=== PATIENT | female | born 1935 | race Caucasian/White ===

== ENCOUNTER 2021-03-02 12:40 | Inpatient (IN) ==
[2021-03-02] MEDS ORDERED: Dexamethasone Sodium Phos/PF 10 MG/ML VIAL IVP ONE (14:14)
[2021-03-02] MEDS ORDERED: cefTRIAXone 2,000 MG in 0.9 % Sodium Chloride Mini Bag 100 ML IVPB ONE (14:14)
[2021-03-02] MEDS ORDERED: Azithromycin 500 MG in 0.9 % Sodium Chloride 250 ML IVPB ONE (14:15)
[2021-03-02] MEDS ORDERED: 0.9 % Sodium Chloride 500 ML IVC ONE (14:24)
[2021-03-02] MEDS ORDERED: 0.9 % Sodium Chloride 1,000 ML IVC SCH ×2 (14:30→17:43)
[2021-03-02 15:02] LABS: Basophils % 0.7 %; Eosinophils # 0.1 K/mcL (0.0-0.6); Eosinophils % 1.8 %; Hematocrit 46.5 % (35.3-44.9); Hemoglobin 15.2 g/dL (11.5-15.4); Immature Granulocytes % 1.3 % (0-4); Lymphocytes # 0.7 K/mcL (0.6-4.6); Lymphocytes % 13.3 %; Mean Corpuscular HGB Conc 32.7 g/dL (31.6-35.5); Mean Corpuscular Hemoglobin 29.5 pg (28.0-33.3); Mean Corpuscular Volume 90.1 fL (83.0-100.0); Mean Platelet Volume 11.3 fL (9.4-12.4); Monocytes # 0.4 K/mcL (0.0-1.3); Monocytes % 7.2 %; Neutrophils # 4.1 K/mcL (1.6-8.9); Platelet Count 213 K/mcL (140-400); Red Blood Count 5.16 M/mcL (3.82-4.97); Red Cell Distribution Width 14.1 % (11.5-14.5); Segmented Neutrophils % 75.7 %; White Blood Count 5.4 K/mcL (4.3-11.1)
[2021-03-02 15:18] LABS: Activated Partial Thrombo Time 90.9 Seconds (26.0-36.0)
[2021-03-02 15:20] LABS: Bilirubin,Urine Moderate (Negative); Blood,Urine Moderate (Negative); Clarity,Urine Cloudy (Clear); Glucose,Urine (UA) Normal (Normal); Ketones,Urine 40 mg/dL (Negative); Leukocyte Esterase,Urine Trace (Negative); Nitrite,Urine Negative (Negative); Protein,Urine 30 mg/dL (Neg-Trace)
[2021-03-02 15:25] LABS: Alanine Aminotransferase 22 Units/L (7-52); Albumin 3.2 g/dL (3.5-5.7); Alkaline Phosphatase 132 Units/L (34-104); Aspartate Amino Transferase 36 Units/L (13-39); BUN/Creatinine Ratio 22 (6-26); Bilirubin,Direct 0.3 mg/dL (0.0-0.2); Bilirubin,Indirect 0.7 mg/dL (0.0-1.0); Blood Urea Nitrogen 16 mg/dL (8-23); Calcium 9.2 mg/dL (8.6-10.3); Carbon Dioxide 29 mEq/L (23-29); Chloride 99 mEq/L (98-107); Globulin 3.3 g/dL (2.4-3.5); Glucose 105 mg/dL (70-105); Osmolality,Calculated 286 (280-300); Potassium 3.2 mEq/L (3.5-5.1); Sodium 137 mEq/L (136-145); Total Protein 6.5 g/dL (6.4-8.9); eGFR For African Americans > 60 (> 60); eGFR For Non-African Americans > 60 (> 60)
[2021-03-02 15:28] LABS: INR 13.3; Prothrombin Time 145.6 Seconds (9.4-12.1)
[2021-03-02 15:29] LABS: Color,Urine Dark Yellow (Yellow)
[2021-03-02 15:32] LABS: Platelet Estimate Normal (Normal); Reactive Lymphocytes Present (Not Present)
[2021-03-02 15:50] LABS: Bacteria,Urine Moderate per hpf (None-Few); Mucus,Urine Few per lpf (None-Few); Squamous Epithelial Cell,Urine Few per hpf (None-Few)
[2021-03-02] MEDS ORDERED: Acetaminophen 325 MG TABLET PO PRN (16:55)
[2021-03-02] MEDS ORDERED: Ondansetron 4 MG/2 ML VIAL IVP PRN (16:55)
[2021-03-02] MEDS ORDERED: MOM Conc 10 ML UD.LIQ PO PRN (16:55)
[2021-03-02] MEDS ORDERED: Mag Hydrox/Al Hydrox/Simeth 30 ML UDC PO PRN (16:55)
[2021-03-02] MEDS ORDERED: Naloxone 0.4 MG/ML INJ IVP PRN (16:55)
[2021-03-02] MEDS ORDERED: Isovue-370 500 ML BOTTLE IVP ONE (17:06)
[2021-03-02 18:45] LABS: Hematocrit 43.3 % (35.3-44.9); Hemoglobin 14.3 g/dL (11.5-15.4)
[2021-03-02 18:57] LABS: INR 13.5; Prothrombin Time 147.4 Seconds (9.4-12.1)
[2021-03-02 23:39] LABS: Hematocrit 43.1 % (35.3-44.9); Hemoglobin 14.4 g/dL (11.5-15.4)
[2021-03-02 23:46] LABS: Prothrombin Time 21.8 Seconds (9.4-12.1)
[2021-03-03 06:14] LABS: Hematocrit 43.2 % (35.3-44.9); Hemoglobin 14.3 g/dL (11.5-15.4)
[2021-03-03 06:39] LABS: INR 1.3; Prothrombin Time 14.2 Seconds (9.4-12.1)
[2021-03-03] MEDS: amLODIPine 5 MG TABLET PO SCH (08:49)
[2021-03-03] MEDS: BuPROPion XL (24 HR) 150 MG TABLET PO SCH (08:49)
[2021-03-03] MEDS: cefTRIAXone 1,000 MG in 0.9 % Sodium Chloride Mini Bag 100 ML IVPB SCH (08:55)
[2021-03-03 09:13] LABS: Basophils % 0.9 %; Hemoglobin 14.4 g/dL (11.5-15.4); Immature Granulocytes % 7.8 % (0-4); Lymphocytes # 0.7 K/mcL (0.6-4.6); Lymphocytes % 16.5 %; Mean Corpuscular HGB Conc 32.7 g/dL (31.6-35.5); Mean Corpuscular Hemoglobin 29.6 pg (28.0-33.3); Mean Corpuscular Volume 90.3 fL (83.0-100.0); Mean Platelet Volume 11.6 fL (9.4-12.4); Monocytes # 0.2 K/mcL (0.0-1.3); Monocytes % 4.9 %; Neutrophils # 3.1 K/mcL (1.6-8.9); Platelet Count 216 K/mcL (140-400); Red Blood Count 4.87 M/mcL (3.82-4.97); Segmented Neutrophils % 69.9 %; White Blood Count 4.5 K/mcL (4.3-11.1)
[2021-03-03 09:22] LABS: BUN/Creatinine Ratio 32 (6-26); Blood Urea Nitrogen 17 mg/dL (8-23); Calcium 8.8 mg/dL (8.6-10.3); Carbon Dioxide 26 mEq/L (23-29); Chloride 107 mEq/L (98-107); Glucose 139 mg/dL (70-105); Osmolality,Calculated 296 (280-300); Potassium 3.6 mEq/L (3.5-5.1); Sodium 141 mEq/L (136-145); eGFR For African Americans > 60 (> 60); eGFR For Non-African Americans > 60 (> 60)
[2021-03-03 09:24] LABS: Platelet Estimate Normal (Normal)
[2021-03-03] MEDS ORDERED: Warfarin perPT PO PRN (18:00)
[2021-03-03] MEDS ORDERED: *HR* Warfarin 2 MG TABLET PO ONE (18:00)
[2021-03-04] MEDS: amLODIPine 5 MG TABLET PO SCH (07:56)
[2021-03-04] MEDS: BuPROPion XL (24 HR) 150 MG TABLET PO SCH (07:56)
[2021-03-04] MEDS: cefTRIAXone 1,000 MG in 0.9 % Sodium Chloride Mini Bag 100 ML IVPB SCH (07:57)
[2021-03-04 07:59] LABS: Basophils % 0.3 %; Eosinophils % 0.1 %; Hematocrit 45.5 % (35.3-44.9); Hemoglobin 15.2 g/dL (11.5-15.4); Immature Granulocytes % 1.4 % (0-4); Lymphocytes # 0.6 K/mcL (0.6-4.6); Lymphocytes % 6.5 %; Mean Corpuscular HGB Conc 33.4 g/dL (31.6-35.5); Mean Corpuscular Hemoglobin 29.7 pg (28.0-33.3); Mean Corpuscular Volume 88.9 fL (83.0-100.0); Mean Platelet Volume 10.6 fL (9.4-12.4); Monocytes # 0.7 K/mcL (0.0-1.3); Monocytes % 7.1 %; Neutrophils # 7.7 K/mcL (1.6-8.9); Platelet Count 290 K/mcL (140-400); Red Blood Count 5.12 M/mcL (3.82-4.97); Segmented Neutrophils % 84.6 %; White Blood Count 9.1 K/mcL (4.3-11.1)
[2021-03-04 08:04] LABS: INR 1.2; Prothrombin Time 12.9 Seconds (9.4-12.1)
[2021-03-04 08:19] LABS: BUN/Creatinine Ratio 40 (6-26); Blood Urea Nitrogen 24 mg/dL (8-23); Calcium 9.2 mg/dL (8.6-10.3); Carbon Dioxide 25 mEq/L (23-29); Chloride 108 mEq/L (98-107); Glucose 122 mg/dL (70-105); Osmolality,Calculated 305 (280-300); Potassium 3.4 mEq/L (3.5-5.1); Sodium 145 mEq/L (136-145); eGFR For African Americans > 60 (> 60); eGFR For Non-African Americans > 60 (> 60)
[2021-03-04] MEDS ORDERED: 0.9 % Sodium Chloride 1,000 ML IV SCH (17:45)
[2021-03-04] MEDS ORDERED: *HR* Warfarin 2 MG TABLET PO ONE (18:00)
[2021-03-04] MEDS ORDERED: Potassium Chloride Elixir 20 MEQ/15 ML UDC PO ONE (18:00)
[2021-03-05] MEDS: cefTRIAXone 1,000 MG in 0.9 % Sodium Chloride Mini Bag 100 ML IVPB SCH (07:27)
[2021-03-05] MEDS: amLODIPine 5 MG TABLET PO SCH ×2 (07:28→11:02)
[2021-03-05] MEDS: BuPROPion XL (24 HR) 150 MG TABLET PO SCH ×2 (07:29→11:11)
[2021-03-05] MEDS ORDERED: *HR* Metoprolol 5 MG/5 ML VIAL IVP ONE (07:33)
[2021-03-05 08:03] LABS: Basophils # 0.1 K/mcL (0.0-0.2); Basophils % 0.7 %; Eosinophils % 0.3 %; Hematocrit 45.1 % (35.3-44.9); Hemoglobin 14.9 g/dL (11.5-15.4); Lymphocytes # 0.7 K/mcL (0.6-4.6); Lymphocytes % 9.9 %; Mean Corpuscular Hemoglobin 29.8 pg (28.0-33.3); Mean Corpuscular Volume 90.2 fL (83.0-100.0); Mean Platelet Volume 10.6 fL (9.4-12.4); Monocytes # 0.6 K/mcL (0.0-1.3); Monocytes % 8.2 %; Neutrophils # 5.5 K/mcL (1.6-8.9); Platelet Count 283 K/mcL (140-400); Red Cell Distribution Width 14.6 % (11.5-14.5); Segmented Neutrophils % 78.9 %
[2021-03-05 08:09] LABS: INR 1.5; Prothrombin Time 16.2 Seconds (9.4-12.1)
[2021-03-05 08:28] LABS: BUN/Creatinine Ratio 48 (6-26); Blood Urea Nitrogen 24 mg/dL (8-23); Calcium 8.8 mg/dL (8.6-10.3); Carbon Dioxide 27 mEq/L (23-29); Chloride 113 mEq/L (98-107); Glucose 121 mg/dL (70-105); Osmolality,Calculated 313 (280-300); Potassium 3.4 mEq/L (3.5-5.1); Sodium 149 mEq/L (136-145); eGFR For African Americans > 60 (> 60); eGFR For Non-African Americans > 60 (> 60)
[2021-03-05] MEDS ORDERED: Potassium Chloride Elixir 20 MEQ/15 ML UDC PO ONE (16:41)
[2021-03-05] MEDS: Ringers Solution, Lactated 1,000 ML IVC SCH (17:16)
[2021-03-05] MEDS ORDERED: *HR* Warfarin 2 MG TABLET PO ONE (18:00)
[2021-03-06] MEDS: Ringers Solution, Lactated 1,000 ML IVC SCH (06:16)
[2021-03-06] MEDS: BuPROPion XL (24 HR) 150 MG TABLET PO SCH (08:58)
[2021-03-06] MEDS: amLODIPine 5 MG TABLET PO SCH (08:59)
[2021-03-06] MEDS: cefTRIAXone 1,000 MG in 0.9 % Sodium Chloride Mini Bag 100 ML IVPB SCH (08:59)
[2021-03-06 09:11] LABS: Basophils % 0.3 %; Eosinophils # 0.1 K/mcL (0.0-0.6); Eosinophils % 0.9 %; Hematocrit 41.1 % (35.3-44.9); Hemoglobin 13.4 g/dL (11.5-15.4); Immature Granulocytes % 2.2 % (0-4); Lymphocytes # 0.7 K/mcL (0.6-4.6); Lymphocytes % 9.3 %; Mean Corpuscular HGB Conc 32.6 g/dL (31.6-35.5); Mean Corpuscular Hemoglobin 29.3 pg (28.0-33.3); Mean Corpuscular Volume 89.9 fL (83.0-100.0); Mean Platelet Volume 10.8 fL (9.4-12.4); Monocytes # 0.5 K/mcL (0.0-1.3); Monocytes % 5.8 %; Neutrophils # 6.4 K/mcL (1.6-8.9); Platelet Count 237 K/mcL (140-400); Red Blood Count 4.57 M/mcL (3.82-4.97); Red Cell Distribution Width 14.2 % (11.5-14.5); Segmented Neutrophils % 81.5 %; White Blood Count 7.9 K/mcL (4.3-11.1)
[2021-03-06 09:17] LABS: INR 2.4
[2021-03-06 09:26] LABS: BUN/Creatinine Ratio 39 (6-26); Blood Urea Nitrogen 17 mg/dL (8-23); Calcium 8.2 mg/dL (8.6-10.3); Carbon Dioxide 29 mEq/L (23-29); Chloride 109 mEq/L (98-107); Glucose 99 mg/dL (70-105); Osmolality,Calculated 300 (280-300); Potassium 3.1 mEq/L (3.5-5.1); Sodium 144 mEq/L (136-145); eGFR For African Americans > 60 (> 60); eGFR For Non-African Americans > 60 (> 60)
[2021-03-07] MEDS: Ringers Solution, Lactated 1,000 ML IVC SCH ×3 (02:13→14:40)
[2021-03-07 08:25] LABS: Basophils % 0.4 %; Eosinophils # 0.1 K/mcL (0.0-0.6); Eosinophils % 1.5 %; Hematocrit 39.1 % (35.3-44.9); Hemoglobin 12.9 g/dL (11.5-15.4); Immature Granulocytes % 4.1 % (0-4); Lymphocytes # 0.9 K/mcL (0.6-4.6); Lymphocytes % 12.2 %; Mean Corpuscular Hemoglobin 29.3 pg (28.0-33.3); Mean Corpuscular Volume 88.9 fL (83.0-100.0); Mean Platelet Volume 10.7 fL (9.4-12.4); Monocytes # 0.5 K/mcL (0.0-1.3); Monocytes % 6.6 %; Neutrophils # 5.5 K/mcL (1.6-8.9); Platelet Count 241 K/mcL (140-400); Red Cell Distribution Width 14.3 % (11.5-14.5); Segmented Neutrophils % 75.2 %; White Blood Count 7.3 K/mcL (4.3-11.1)
[2021-03-07 08:31] LABS: INR 2.8; Prothrombin Time 31.3 Seconds (9.4-12.1)
[2021-03-07 08:40] LABS: BUN/Creatinine Ratio 30 (6-26); Blood Urea Nitrogen 14 mg/dL (8-23); Calcium 8.1 mg/dL (8.6-10.3); Carbon Dioxide 29 mEq/L (23-29); Chloride 109 mEq/L (98-107); Glucose 94 mg/dL (70-105); Osmolality,Calculated 298 (280-300); Potassium 3.5 mEq/L (3.5-5.1); Sodium 144 mEq/L (136-145); eGFR For African Americans > 60 (> 60); eGFR For Non-African Americans > 60 (> 60)
[2021-03-07] MEDS: amLODIPine 5 MG TABLET PO SCH (09:12)
[2021-03-07] MEDS: BuPROPion XL (24 HR) 150 MG TABLET PO SCH (09:12)
[2021-03-07] MEDS ORDERED: Ringers Solution, Lactated 1,000 ML ONE (14:25)
[2021-03-07] MEDS: hydroCHLOROthiazide 25 MG TABLET PO SCH (17:49)
[2021-03-08 09:53] LABS: Basophils % 0.5 %; Eosinophils # 0.1 K/mcL (0.0-0.6); Eosinophils % 1.5 %; Hematocrit 39.6 % (35.3-44.9); Hemoglobin 13.4 g/dL (11.5-15.4); Immature Granulocytes % 4.1 % (0-4); Lymphocytes # 0.8 K/mcL (0.6-4.6); Lymphocytes % 12.7 %; Mean Corpuscular HGB Conc 33.8 g/dL (31.6-35.5); Mean Corpuscular Hemoglobin 30.1 pg (28.0-33.3); Mean Platelet Volume 10.8 fL (9.4-12.4); Monocytes # 0.6 K/mcL (0.0-1.3); Monocytes % 8.5 %; Neutrophils # 4.8 K/mcL (1.6-8.9); Platelet Count 246 K/mcL (140-400); Red Blood Count 4.45 M/mcL (3.82-4.97); Red Cell Distribution Width 14.4 % (11.5-14.5); Segmented Neutrophils % 72.7 %; White Blood Count 6.6 K/mcL (4.3-11.1)
[2021-03-08 10:01] LABS: INR 2.9; Prothrombin Time 31.8 Seconds (9.4-12.1)
[2021-03-08 10:08] LABS: BUN/Creatinine Ratio 24 (6-26); Blood Urea Nitrogen 13 mg/dL (8-23); Calcium 8.6 mg/dL (8.6-10.3); Carbon Dioxide 29 mEq/L (23-29); Chloride 107 mEq/L (98-107); Glucose 137 mg/dL (70-105); Magnesium 1.7 mg/dL (1.6-2.6); Osmolality,Calculated 296 (280-300); Potassium 3.2 mEq/L (3.5-5.1); Sodium 142 mEq/L (136-145); eGFR For African Americans > 60 (> 60); eGFR For Non-African Americans > 60 (> 60)
[2021-03-08] MEDS: amLODIPine 5 MG TABLET PO SCH (11:08)
[2021-03-08] MEDS: BuPROPion XL (24 HR) 150 MG TABLET PO SCH (11:09)
[2021-03-08] MEDS: hydroCHLOROthiazide 25 MG TABLET PO SCH (11:09)
[2021-03-08 12:32] VITALS: BP 121/71; PULSE 86; RESP 15; TEMP 98.4; O2SAT 90
== END 2021-03-08 15:52 | disposition critical access hospital (66) | DRG 177 ==
LOC: INPPIK 12:40 → EMEROOPIK 12:40 → INPPIK 17:21
PROVIDERS: ADMIT Internal Medicine; ATTEND Internal Medicine

== ENCOUNTER 2021-03-08 13:47 | Inpatient (IN) ==
[2021-03-08] MEDS ORDERED: Nitroglycerin 0.4 MG TAB.SUBL SL PRN (14:59)
[2021-03-08] MEDS ORDERED: hydrALAZINE 25 MG TABLET PO PRN (15:00)
[2021-03-08] MEDS ORDERED: Warfarin perPT PO PRN (18:00)
[2021-03-09 06:26] LABS: Basophils % 0.5 %; Eosinophils # 0.1 K/mcL (0.0-0.6); Eosinophils % 2.1 %; Hematocrit 39.2 % (35.3-44.9); Immature Granulocytes % 3.5 % (0-4); Mean Corpuscular HGB Conc 33.2 g/dL (31.6-35.5); Mean Corpuscular Hemoglobin 29.5 pg (28.0-33.3); Mean Corpuscular Volume 89.1 fL (83.0-100.0); Mean Platelet Volume 10.8 fL (9.4-12.4); Monocytes # 0.5 K/mcL (0.0-1.3); Monocytes % 8.9 %; Neutrophils # 4.1 K/mcL (1.6-8.9); Platelet Count 247 K/mcL (140-400); Red Cell Distribution Width 14.5 % (11.5-14.5); White Blood Count 6.1 K/mcL (4.3-11.1)
[2021-03-09 06:40] LABS: INR 2.2
[2021-03-09 07:06] LABS: BUN/Creatinine Ratio 25 (6-26); Blood Urea Nitrogen 14 mg/dL (8-23); Calcium 8.6 mg/dL (8.6-10.3); Carbon Dioxide 30 mEq/L (23-29); Chloride 107 mEq/L (98-107); Glucose 95 mg/dL (70-105); Osmolality,Calculated 298 (280-300); Potassium 3.5 mEq/L (3.5-5.1); Sodium 144 mEq/L (136-145); eGFR For African Americans > 60 (> 60); eGFR For Non-African Americans > 60 (> 60)
[2021-03-09] MEDS ORDERED: *HR* Warfarin 4 MG TABLET PO SCH (09:00)
[2021-03-09] MEDS ORDERED: NON-FORMULARY MEDICATION 1 EACH EACH (Escitalopram Oxalate 5 MG Tablet) PO SCH (09:00)
[2021-03-09] MEDS: hydroCHLOROthiazide 25 MG TABLET PO SCH (10:18)
[2021-03-09] MEDS: BuPROPion XL (24 HR) 150 MG TABLET PO SCH (10:18)
[2021-03-09] MEDS: amLODIPine 5 MG TABLET PO SCH (10:18)
[2021-03-09] MEDS: Megestrol Acetate 400 MG/10 ML UDC PO SCH (16:00)
[2021-03-09] MEDS ORDERED: *HR* Warfarin 2 MG TABLET PO ONE (18:00)
[2021-03-10 07:45] LABS: Prothrombin Time 22.2 Seconds (9.4-12.1)
[2021-03-10] MEDS: amLODIPine 5 MG TABLET PO SCH (09:48)
[2021-03-10] MEDS: hydroCHLOROthiazide 25 MG TABLET PO SCH (09:48)
[2021-03-10] MEDS: BuPROPion XL (24 HR) 150 MG TABLET PO SCH (09:48)
[2021-03-10] MEDS: Megestrol Acetate 400 MG/10 ML UDC PO SCH (09:48)
[2021-03-10] MEDS ORDERED: *HR* Warfarin 1 MG TABLET PO ONE (18:00)
[2021-03-11 08:18] LABS: INR 1.9; Prothrombin Time 21.2 Seconds (9.4-12.1)
[2021-03-11] MEDS: amLODIPine 5 MG TABLET PO SCH (10:23)
[2021-03-11] MEDS: BuPROPion XL (24 HR) 150 MG TABLET PO SCH (10:23)
[2021-03-11] MEDS: Megestrol Acetate 400 MG/10 ML UDC PO SCH (10:23)
[2021-03-11] MEDS: hydroCHLOROthiazide 25 MG TABLET PO SCH (10:25)
[2021-03-11] MEDS ORDERED: *HR* Warfarin 2 MG TABLET PO ONE (18:00)
[2021-03-12 07:39] LABS: INR 1.9
[2021-03-12] MEDS: BuPROPion XL (24 HR) 150 MG TABLET PO SCH (07:53)
[2021-03-12] MEDS: hydroCHLOROthiazide 25 MG TABLET PO SCH (07:53)
[2021-03-12] MEDS: amLODIPine 5 MG TABLET PO SCH (07:53)
[2021-03-12] MEDS: Megestrol Acetate 400 MG/10 ML UDC PO SCH (07:54)
[2021-03-12] MEDS ORDERED: *HR* Warfarin 3 MG TABLET PO ONE (18:00)
[2021-03-13 08:22] LABS: INR 2.1; Prothrombin Time 23.4 Seconds (9.4-12.1)
[2021-03-13] MEDS: hydroCHLOROthiazide 25 MG TABLET PO SCH (08:57)
[2021-03-13] MEDS: amLODIPine 5 MG TABLET PO SCH (08:57)
[2021-03-13] MEDS: BuPROPion XL (24 HR) 150 MG TABLET PO SCH (08:57)
[2021-03-13] MEDS: Megestrol Acetate 400 MG/10 ML UDC PO SCH (08:58)
[2021-03-13] MEDS ORDERED: *HR* Warfarin 3 MG TABLET PO ONE (18:00)
[2021-03-14 08:59] LABS: INR 2.4; Prothrombin Time 26.2 Seconds (9.4-12.1)
[2021-03-14] MEDS: amLODIPine 5 MG TABLET PO SCH (09:40)
[2021-03-14] MEDS: hydroCHLOROthiazide 25 MG TABLET PO SCH (09:41)
[2021-03-14] MEDS: BuPROPion XL (24 HR) 150 MG TABLET PO SCH (09:41)
[2021-03-14] MEDS: Megestrol Acetate 400 MG/10 ML UDC PO SCH (09:42)
[2021-03-14] MEDS ORDERED: *HR* Warfarin 2 MG TABLET PO ONE (18:00)
[2021-03-15] MEDS: Acetaminophen 325 MG TABLET PO PRN (03:22)
[2021-03-15 07:48] LABS: INR 2.9
[2021-03-15] MEDS: Megestrol Acetate 400 MG/10 ML UDC PO SCH (08:00)
[2021-03-15] MEDS: amLODIPine 5 MG TABLET PO SCH (08:00)
[2021-03-15] MEDS: BuPROPion XL (24 HR) 150 MG TABLET PO SCH (08:00)
[2021-03-15] MEDS: hydroCHLOROthiazide 25 MG TABLET PO SCH (08:01)
[2021-03-15] MEDS: Sennosides/Docusate Sodium TABLET PO PRN (08:14)
[2021-03-15 10:07] LABS: Hematocrit 38.1 % (35.3-44.9); Hemoglobin 12.5 g/dL (11.5-15.4); Mean Corpuscular HGB Conc 32.8 g/dL (31.6-35.5); Mean Corpuscular Volume 91.6 fL (83.0-100.0); Mean Platelet Volume 11.3 fL (9.4-12.4); Platelet Count 224 K/mcL (140-400); Red Blood Count 4.16 M/mcL (3.82-4.97); Red Cell Distribution Width 15.3 % (11.5-14.5); White Blood Count 8.6 K/mcL (4.3-11.1)
[2021-03-15 10:18] LABS: BUN/Creatinine Ratio 32 (6-26); Blood Urea Nitrogen 21 mg/dL (8-23); Calcium 8.2 mg/dL (8.6-10.3); Carbon Dioxide 24 mEq/L (23-29); Chloride 105 mEq/L (98-107); Glucose 92 mg/dL (70-105); Osmolality,Calculated 289 (280-300); Potassium 3.8 mEq/L (3.5-5.1); Sodium 138 mEq/L (136-145); eGFR For African Americans > 60 (> 60); eGFR For Non-African Americans > 60 (> 60)
[2021-03-16 07:54] LABS: INR 2.3; Prothrombin Time 25.5 Seconds (9.4-12.1)
[2021-03-16] MEDS: amLODIPine 5 MG TABLET PO SCH (09:02)
[2021-03-16] MEDS: BuPROPion XL (24 HR) 150 MG TABLET PO SCH (09:02)
[2021-03-16] MEDS: hydroCHLOROthiazide 25 MG TABLET PO SCH (09:02)
[2021-03-16] MEDS: Megestrol Acetate 400 MG/10 ML UDC PO SCH (09:03)
[2021-03-16] MEDS ORDERED: *HR* Warfarin 3 MG TABLET PO ONE (18:00)
[2021-03-17 07:37] LABS: INR 1.9; Prothrombin Time 20.8 Seconds (9.4-12.1)
[2021-03-17] MEDS: hydroCHLOROthiazide 25 MG TABLET PO SCH (08:14)
[2021-03-17] MEDS: Megestrol Acetate 400 MG/10 ML UDC PO SCH (08:14)
[2021-03-17] MEDS: BuPROPion XL (24 HR) 150 MG TABLET PO SCH (08:15)
[2021-03-17] MEDS: amLODIPine 5 MG TABLET PO SCH (08:15)
[2021-03-17] MEDS: Sennosides/Docusate Sodium TABLET PO PRN (08:20)
[2021-03-17] MEDS ORDERED: *HR* Warfarin 3 MG TABLET PO ONE (18:00)
[2021-03-18] MEDS: Megestrol Acetate 400 MG/10 ML UDC PO SCH (08:18)
[2021-03-18] MEDS: hydroCHLOROthiazide 25 MG TABLET PO SCH (08:18)
[2021-03-18] MEDS: BuPROPion XL (24 HR) 150 MG TABLET PO SCH (08:18)
[2021-03-18] MEDS: amLODIPine 5 MG TABLET PO SCH (08:18)
[2021-03-18] MEDS: Sennosides/Docusate Sodium TABLET PO PRN (08:18)
[2021-03-18 09:15] LABS: INR 2.2
[2021-03-18] MEDS ORDERED: *HR* Warfarin 2 MG TABLET PO ONE (18:00)
[2021-03-18] MEDS: Acetaminophen 325 MG TABLET PO PRN (20:32)
[2021-03-19] MEDS: amLODIPine 5 MG TABLET PO SCH (07:53)
[2021-03-19] MEDS: Megestrol Acetate 400 MG/10 ML UDC PO SCH (07:53)
[2021-03-19] MEDS: hydroCHLOROthiazide 25 MG TABLET PO SCH (07:54)
[2021-03-19] MEDS: BuPROPion XL (24 HR) 150 MG TABLET PO SCH (07:54)
[2021-03-19] MEDS: Sennosides/Docusate Sodium TABLET PO PRN (07:54)
[2021-03-19 09:38] LABS: INR 2.2; Prothrombin Time 24.2 Seconds (9.4-12.1)
[2021-03-19] MEDS ORDERED: *HR* Warfarin 2 MG TABLET PO ONE (18:00)
[2021-03-19] MEDS: Sennosides/Docusate Sodium TABLET PO SCH (21:33)
[2021-03-20 07:58] LABS: INR 2.3; Prothrombin Time 25.5 Seconds (9.4-12.1)
[2021-03-20] MEDS: Sennosides/Docusate Sodium TABLET PO SCH ×2 (09:18→20:26)
[2021-03-20] MEDS: amLODIPine 5 MG TABLET PO SCH (09:18)
[2021-03-20] MEDS: hydroCHLOROthiazide 25 MG TABLET PO SCH (09:18)
[2021-03-20] MEDS: Megestrol Acetate 400 MG/10 ML UDC PO SCH (09:18)
[2021-03-20] MEDS: BuPROPion XL (24 HR) 150 MG TABLET PO SCH (09:19)
[2021-03-20] MEDS ORDERED: *HR* Warfarin 2 MG TABLET PO ONE (18:00)
[2021-03-21 07:30] LABS: INR 2.4; Prothrombin Time 26.2 Seconds (9.4-12.1)
[2021-03-21] MEDS: Megestrol Acetate 400 MG/10 ML UDC PO SCH (08:53)
[2021-03-21] MEDS: Sennosides/Docusate Sodium TABLET PO SCH ×2 (08:54→20:19)
[2021-03-21] MEDS: BuPROPion XL (24 HR) 150 MG TABLET PO SCH (08:54)
[2021-03-21] MEDS: amLODIPine 5 MG TABLET PO SCH (08:55)
[2021-03-21] MEDS: hydroCHLOROthiazide 25 MG TABLET PO SCH (08:59)
[2021-03-21] MEDS: Acetaminophen 325 MG TABLET PO PRN ×2 (12:20→20:23)
[2021-03-21 15:35] LABS: Basophils % 0.1 %; Eosinophils # 0.1 K/mcL (0.0-0.6); Eosinophils % 0.8 %; Hematocrit 40.2 % (35.3-44.9); Hemoglobin 13.2 g/dL (11.5-15.4); Immature Granulocytes % 0.5 % (0-4); Lymphocytes # 1.5 K/mcL (0.6-4.6); Lymphocytes % 17.4 %; Mean Corpuscular HGB Conc 32.8 g/dL (31.6-35.5); Mean Corpuscular Hemoglobin 29.9 pg (28.0-33.3); Mean Corpuscular Volume 91.2 fL (83.0-100.0); Mean Platelet Volume 10.2 fL (9.4-12.4); Monocytes # 0.6 K/mcL (0.0-1.3); Neutrophils # 6.3 K/mcL (1.6-8.9); Platelet Count 236 K/mcL (140-400); Red Blood Count 4.41 M/mcL (3.82-4.97); Red Cell Distribution Width 16.3 % (11.5-14.5); Segmented Neutrophils % 74.2 %; White Blood Count 8.5 K/mcL (4.3-11.1)
[2021-03-21 15:48] LABS: Alanine Aminotransferase 20 Units/L (7-52); Albumin 3.3 g/dL (3.5-5.7); Alkaline Phosphatase 126 Units/L (34-104); Aspartate Amino Transferase 12 Units/L (13-39); BUN/Creatinine Ratio 37 (6-26); Bilirubin,Total 0.4 mg/dL (0.3-1.0); Blood Urea Nitrogen 29 mg/dL (8-23); Calcium 8.9 mg/dL (8.6-10.3); Carbon Dioxide 25 mEq/L (23-29); Chloride 105 mEq/L (98-107); Globulin 3.2 g/dL (2.4-3.5); Glucose 101 mg/dL (70-105); Magnesium 1.8 mg/dL (1.6-2.6); Osmolality,Calculated 294 (280-300); Potassium 3.9 mEq/L (3.5-5.1); Sodium 139 mEq/L (136-145); Total Protein 6.5 g/dL (6.4-8.9); eGFR For African Americans > 60 (> 60); eGFR For Non-African Americans > 60 (> 60)
[2021-03-21] MEDS ORDERED: *HR* Warfarin 2 MG TABLET PO ONE (18:00)
[2021-03-22 07:21] VITALS: BP 136/80; PULSE 67; RESP 21; TEMP 98.1; O2SAT 95
[2021-03-22 07:33] LABS: INR 2.2; Prothrombin Time 23.9 Seconds (9.4-12.1)
[2021-03-22] MEDS: BuPROPion XL (24 HR) 150 MG TABLET PO SCH (08:59)
[2021-03-22] MEDS: Megestrol Acetate 400 MG/10 ML UDC PO SCH (08:59)
[2021-03-22] MEDS: hydroCHLOROthiazide 25 MG TABLET PO SCH (08:59)
[2021-03-22] MEDS: Sennosides/Docusate Sodium TABLET PO SCH (09:00)
[2021-03-22] MEDS: amLODIPine 5 MG TABLET PO SCH (09:00)
[2021-03-22 09:29] LABS: Bilirubin,Urine Negative (Negative); Blood,Urine Negative (Negative); Clarity,Urine Clear (Clear); Color,Urine Yellow (Yellow); Glucose,Urine (UA) Normal (Normal); Ketones,Urine Negative (Negative); Leukocyte Esterase,Urine Trace (Negative); Nitrite,Urine Negative (Negative); Protein,Urine Negative (Neg-Trace); Specific Gravity,Urine 1.025 (1.010-1.025); Urobilinogen,Urine Normal (Normal)
[2021-03-22 09:42] LABS: RBC,Urine 0-3 per hpf (0-3); Renal Epithelial Cells,Urine Few per hpf (None-Few); Squamous Epithelial Cell,Urine Few per hpf (None-Few)
[2021-03-22] MEDS ORDERED: *HR* Warfarin 2 MG TABLET PO ONE (18:00)
== END 2021-03-22 14:46 | DRG 178 ==
LOC: INPPIK 16:02
PROVIDERS: ADMIT Family Medicine; ATTEND Family Medicine